=== PATIENT | female | born 2000 | race Asian ===

== ENCOUNTER 2020-09-29 22:31 | Emergency (ER) | payer OTHER ==
[~2020-09-29] VITALS: Ht 160 cm; Wt 54.4 kg
[2020-09-30] MEDS ORDERED: CEFADROXIL500 MG PO (01:32)
== END 2020-09-30 01:41 | disposition home or self-care (01) ==
LOC: ER 22:31
DX: S61.421A Laceration with foreign body of right hand, initial encounter (principal); W26.0XXA Contact with knife, initial encounter; Y93.89 Activity, other specified; Y92.098 Other place in other non-institutional residence as the place of occurrence of the external cause; Y99.8 Other external cause status